=== PATIENT | female | born 1935 | race Caucasian/White ===

== ENCOUNTER 2017-09-24 09:06 | Outpatient (CLI) | payer MEDICARE, BC | END 2017-09-24 09:07 | disposition home or self-care (01) | LOC: BICMAMMO 09:06 | PROVIDERS: ATTEND Internal Medicine | DX: Z12.31 Encounter for screening mammogram for malignant neoplasm of breast (principal); Z80.3 Family history of malignant neoplasm of breast | CPT/HCPCS: 77063; 77067 ==

== ENCOUNTER 2017-10-02 10:14 | Emergency (ER) | payer MEDICARE, BC ==
[2017-10-02 10:39] LABS: #Eosinphils 0.1 thou/uL (0.0-0.7); #Monocytes 0.5 thou/uL (0.11-0.59); #Neutrophils 3.6 thou/uL (1.40-6.50); %Basophils 0.2 % (0.0-1.0); %Eosinophils 2.1 % (0.0-10.0); %Monocytes 10.1 % (0.0-10.0); %Neutrophils 68.7 % (42.0-75.0); Hemoglobin 12.9 g/dL (12.0-16.0); Mean Corpuscular HGB CONC 34.1 g/dL (32.0-36.0); Mean Corpuscular Hemoglobin 31.4 pg (27.0-31.0); Mean Platelet Volume 6.4 fL (7.4-10.4); Platelet Count 215 thou/uL (130-400); RBC Distribution Width 11.6 % (11.5-14.5); Red Blood Cell (RBC) Count 4.12 mill/uL (4.20-5.40); White Blood Cell (WBC) Count 5.2 thou/uL (4.8-10.8)
--- NOTE | 2017-10-02 10:53 | RAD ---
PORTABLE UPRIGHT FRONTAL CHEST RADIOGRAPH: DATE: 10/02/17. COMPARISON: 06/09/13. HISTORY: Cough for 6 days. FINDINGS: Heart and mediastinal contours are unremarkable. There is an old displaced mid shaft right clavicle fracture. 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 No pneumothorax or pleural fluid. No focal consolidation or alveolar edema. IMPRESSION: No acute findings - stable appearance of the chest. POS: [facility]
[2017-10-02 11:03] LABS: ALT (SGPT) 13 U/L (8-55); AST (SGOT) 20 U/L (5-34); Albumin 4.1 g/dL (3.4-4.8); Alkaline Phosphatase 98 U/L (40-150); Anion Gap 12 mmol/L (10-20); BUN (Urea Nitrogen) 17 mg/dL (9.8-20.1); Bilirubin, Total 0.4 mg/dL (0.2-1.2); Calc. Creatinine Clearance 0 mL/min (70-130); Calcium 9.3 mg/dL (7.8-10.44); Carbon Dioxide 26 mmol/L (23-31); Chloride 93 mmol/L (98-107); Estimated GFR-MDRD 60; Globulin 2.6 g/dL (2.4-3.5); Glucose 101 mg/dL (83-110); Potassium 3.9 mmol/L (3.5-5.1); Protein, Total 6.7 g/dL (6.0-8.3); Sodium 127 mmol/L (136-145)
[2017-10-02 14:21] LABS: Anion Gap 11 mmol/L (10-20); BUN (Urea Nitrogen) 16 mg/dL (9.8-20.1); Calc. Creatinine Clearance 0 mL/min (70-130); Calcium 8.9 mg/dL (7.8-10.44); Carbon Dioxide 28 mmol/L (23-31); Chloride 97 mmol/L (98-107); Estimated GFR-MDRD 69; Glucose 92 mg/dL (83-110); Potassium 3.9 mmol/L (3.5-5.1); Sodium 132 mmol/L (136-145)
== END 2017-10-02 14:52 | disposition home or self-care (01) ==
LOC: ERS 10:14
DX: E87.1 Hypo-osmolality and hyponatremia (principal); J06.9 Acute upper respiratory infection, unspecified; M19.90 Unspecified osteoarthritis, unspecified site; Z79.82 Long term (current) use of aspirin; Z79.899 Other long term (current) drug therapy
CPT/HCPCS: 36415; 71045; 80053; 85025; 96360

== ENCOUNTER 2017-10-22 14:30 | Outpatient (CLI) | payer MEDICARE, BC ==
--- NOTE | 2017-10-22 15:51 | RAD ---
LEFT KNEE FOUR VIEWS: History: Osteoarthritis. FINDINGS/IMPRESSION: There are post op changes of total knee replacement in good position and alignment. No fracture or di slocation or bony destruction is seen. No perihardware lucency is identified to suggest loosening. Th ere is fullness in the suprapatellar pouch, suspicious for joint effusion. POS: [facility]
--- NOTE | 2017-10-22 15:53 | RAD ---
TWO VIEWS LEFT TIBIA AND FIBULA: Date: 10-22-17 History: Osteoarthritis. Comparison: None available. FINDINGS: There is a left total knee prosthesis incompletely imaged on this exam. However, where imaged, no def inite hardware complication is appreciated. There is no fracture or dislocation involving the left ti morenita or fibula. Ankle mortise appears congruent. There are degenerative changes involving the hindfoot . There is a plantar calcaneal enthesophyte identified. IMPRESSION: 1. No acute osseous abnormality involving the left tibia or fibula. 2. Left total knee prosthesis. 3. Degenerative changes involving the midfoot as well as hindfoot. POS: [facility]
--- NOTE | 2017-10-22 15:55 | RAD ---
LEFT FEMUR TWO VIEWS: History: Osteoarthritis. Comparison: None. FINDINGS: Mild enthesopathic changes of the lesser and greater trochanters. There is normal appearance to the l eft hip joint. No fracture. No malalignment. Incomplete evaluation of left total knee arthroplasty. No perihardware fracture. IMPRESSION: Enthesopathic changes lesser and greater trochanters. No acute osseous abnormality. Minimal narrowing of the left hip joint. POS: [facility]
--- NOTE | 2017-10-22 19:15 | ULT ---
ULTRASOUND WITH DOPPLER DUPLEX VENOUS LOWER EXTREMITY LEFT: 10/22/17 HISTORY: 82-year-old female with left knee pain. TECHNIQUE: Color flow Doppler, spectral waveform analysis of pulsed Doppler, and parikh-scale imaging with jalen collette and augmentation, were used to evaluate the left common femoral, femoral, popliteal, posterior t ibial, and superficial femoral, veins; and the proximal portions of the profunda femoral and greater saphenous, veins. FINDINGS: There is normal compressibility, demonstration of blood flow by color Doppler and pulsed Doppler, and response to augmentation, in all interrogated veins. There is a cystic fluid collection in the popli teal fossa which was not measured by the senior test engineer. IMPRESSION: 1. No deep vein thrombosis in the left lower extremity. 2. Left Boo's cyst. latoya[] POS: [facility]
== END 2017-10-22 14:31 | disposition home or self-care (01) ==
LOC: ULT 14:30
PROVIDERS: ATTEND Internal Medicine
DX: M79.605 Pain in left leg (principal); M19.90 Unspecified osteoarthritis, unspecified site; M71.22 Synovial cyst of popliteal space [Baker], left knee; M19.072 Primary osteoarthritis, left ankle and foot; Z96.652 Presence of left artificial knee joint

== ENCOUNTER 2018-11-04 14:13 | Outpatient (CLI) | payer MEDICARE, BC ==
--- NOTE | 2018-11-05 11:13 | MMO ---
Bilateral MAMMO Bilat Screen [facility]. CLINICAL HISTORY: Patient is 83 years old and is seen for screening. The patient has the following family history of breast cancer: mother, at age 56. The patient has no personal history of cancer. VIEWS: The views performed were: bilateral craniocaudal with tomosynthesis and bilateral mediolateral oblique with tomosynthesis. FILMS COMPARED: The present examination has been compared to prior imaging studies performed at [facility] on 04/21/2001, 06/09/2002, 06/11/2003, 07/04/2004, 08/16/2005, 08/23/2006, 09/11/2007, 10/26/2008, 11/25/2009, 01/29/2011, 05/19/2012, 07/14/2013, 07/16/2014, 08/04/2015, 09/13/2016 and 09/24/2017. MAMMOGRAM FINDINGS: There are scattered fibroglandular densities. There are stable benign appearing calcifications seen in both breasts. There are also vascular calcifications. There are no suspicious masses, suspicious calcifications, or new areas of architectural distortion. IMPRESSION: THERE IS NO MAMMOGRAPHIC EVIDENCE OF MALIGNANCY. A ROUTINE FOLLOW-UP MAMMOGRAM IN 1 YEAR IS RECOMMENDED. THE RESULTS OF THIS EXAM WERE SENT TO THE PATIENT. ACR BI-RADS Category 2 - Benign finding MAMMOGRAPHY NOTE: 1. A negative mammogram report should not delay a biopsy if a dominant of clinically suspicious mass is present. 2. Approximately 10% to 15% of breast cancers are not detected by mammography. 3. Adenosis and dense breasts may obscure an underlying neoplasm.
== END 2018-11-04 14:14 | disposition home or self-care (01) ==
LOC: BICMAMMO 14:13
PROVIDERS: ATTEND Internal Medicine
DX: Z12.31 Encounter for screening mammogram for malignant neoplasm of breast (principal); Z80.3 Family history of malignant neoplasm of breast
CPT/HCPCS: 77063; 77067

== ENCOUNTER 2019-05-20 16:26 | Outpatient (CLI) | payer MEDICARE, BC ==
--- NOTE | 2019-05-20 16:45 | RAD ---
XR Shoulder Rt 3 View STANDARD HISTORY: Right shoulder pain FINDINGS: There is a old displaced fracture involving the shaft of the right clavicle, also seen on the chest r adiograph of 10/02/2017. No acute fracture or dislocation is identified. There are degenerative changes in the acromioclavicu lar joint.
== END 2019-05-20 16:27 | disposition home or self-care (01) ==
LOC: BICRAD 16:26
PROVIDERS: ATTEND Internal Medicine Rheumatology
DX: M25.511 Pain in right shoulder (principal)

== ENCOUNTER 2020-05-12 13:37 | Outpatient (CLI) | payer MEDICARE, BC ==
--- NOTE | 2020-05-12 14:51 | MMO ---
Bilateral MAMMO Bilat Screen [facility]. CLINICAL HISTORY: Patient is 84 years old and is seen for screening. The patient has the following family history of breast cancer: mother, at age 56. The patient has no personal history of cancer. VIEWS: The views performed were: bilateral craniocaudal with tomosynthesis and bilateral mediolateral oblique with tomosynthesis. FILMS COMPARED: The present examination has been compared to prior imaging studies performed at [facility] on 08/04/2015, 09/13/2016, 09/24/2017 and 11/04/2018. This study has been interpreted with the assistance of computer-aided detection. MAMMOGRAM FINDINGS: There are scattered fibroglandular densities. There are stable benign appearing calcifications seen in both breasts. There are no suspicious masses, suspicious calcifications, or new areas of architectural distortion. IMPRESSION: THERE IS NO MAMMOGRAPHIC EVIDENCE OF MALIGNANCY. A ROUTINE FOLLOW-UP MAMMOGRAM IN 1 YEAR IS RECOMMENDED. THE RESULTS OF THIS EXAM WERE SENT TO THE PATIENT. ACR BI-RADS Category 2 - Benign finding MAMMOGRAPHY NOTE: 1. A negative mammogram report should not delay a biopsy if a dominant of clinically suspicious mass is present. 2. Approximately 10% to 15% of breast cancers are not detected by mammography. 3. Adenosis and dense breasts may obscure an underlying neoplasm. Reported by: MILLY GONZALEZ MD Electonically Signed: [id number]
== END 2020-05-12 13:38 | disposition home or self-care (01) ==
LOC: BICMAMMO 13:37
PROVIDERS: ATTEND Internal Medicine
DX: Z12.31 Encounter for screening mammogram for malignant neoplasm of breast (principal); Z80.3 Family history of malignant neoplasm of breast
CPT/HCPCS: 77063; 77067

== ENCOUNTER 2020-05-23 13:49 | Emergency (ER) | payer MEDICARE, BC ==
--- NOTE | 2020-05-23 14:38 | RAD ---
EXAM: Single view of the chest HISTORY: Chest pain COMPARISON: 10/02/2017 FINDINGS: Single view of the chest shows a normal sized cardiomediastinal silhouette. There is no junior dence of consolidation, mass, or pleural effusion. There is absence of the distal aspect of the right clavicle. There appear to be a right healed rib fractures. Degenerative changes are seen in the spine and shoulders. IMPRESSION: No evidence of acute cardiopulmonary disease
[2020-05-23 15:28] LABS: #Eosinphils 0.1 thou/uL (0.0-0.7); #Monocytes 0.6 thou/uL (0.11-0.59); #Neutrophils 3.7 thou/uL (1.40-6.50); %Basophils 0.7 % (0.0-1.0); %Eosinophils 1.9 % (0.0-10.0); %Monocytes 8.9 % (0.0-10.0); %Neutrophils 57.6 % (42.0-75.0); Hemoglobin 13.2 g/dL (12.0-16.0); Mean Corpuscular HGB CONC 33.9 g/dL (32.0-36.0); Mean Corpuscular Hemoglobin 30.9 pg (27.0-31.0); Mean Corpuscular Volume 91.3 fL (78.0-98.0); Mean Platelet Volume 7.8 fL (7.4-10.4); Platelet Count 222 thou/uL (130-400); RBC Distribution Width 11.2 % (11.5-14.5); Red Blood Cell (RBC) Count 4.27 mill/uL (4.20-5.40); White Blood Cell (WBC) Count 6.4 thou/uL (4.8-10.8)
[2020-05-23 15:55] LABS: ALT (SGPT) 9 U/L (8-55); AST (SGOT) 20 U/L (5-34); Albumin 4.1 g/dL (3.4-4.8); Alkaline Phosphatase 113 U/L (40-110); Anion Gap 12 mmol/L (10-20); BUN (Urea Nitrogen) 20 mg/dL (9.8-20.1); Bilirubin, Total 0.5 mg/dL (0.2-1.2); Calc. Creatinine Clearance 0 mL/min (70-130); Calcium 9.3 mg/dL (7.8-10.44); Carbon Dioxide 28 mmol/L (23-31); Chloride 101 mmol/L (98-107); Estimated GFR-MDRD 55; Globulin 2.7 g/dL (2.4-3.5); Glucose 94 mg/dL (83-110); Potassium 4.4 mmol/L (3.5-5.1); Protein, Total 6.8 g/dL (6.0-8.3); Sodium 137 mmol/L (136-145)
== END 2020-05-23 19:10 | disposition home or self-care (01) ==
LOC: ERS 13:49
DX: R07.9 Chest pain, unspecified (principal); M19.90 Unspecified osteoarthritis, unspecified site; Z79.82 Long term (current) use of aspirin; Z79.899 Other long term (current) drug therapy
CPT/HCPCS: 36415; 36600; 71045; 80053; 84484; 85025; 93005

== ENCOUNTER 2021-06-01 10:12 | Outpatient (CLI) | payer MEDICARE, BC | END 2021-06-01 10:13 | disposition home or self-care (01) | LOC: BICMAMMO 10:12 | PROVIDERS: ATTEND Internal Medicine | DX: Z12.31 Encounter for screening mammogram for malignant neoplasm of breast (principal); Z13.820 Encounter for screening for osteoporosis; Z78.0 Asymptomatic menopausal state; Z98.890 Other specified postprocedural states; Z80.3 Family history of malignant neoplasm of breast | CPT/HCPCS: 77063; 77067; 77080 ==

== ENCOUNTER 2023-07-09 11:09 | Outpatient (CLI) | payer MEDICARE, BC | END 2023-07-09 11:10 | disposition home or self-care (01) | LOC: BICMAMMO 11:09 | PROVIDERS: ATTEND Internal Medicine | DX: Z12.31 Encounter for screening mammogram for malignant neoplasm of breast (principal); Z80.3 Family history of malignant neoplasm of breast | CPT/HCPCS: 77063; 77067 ==

== ENCOUNTER 2023-10-29 14:03 | Outpatient (CLI) | payer MEDICARE, BC | END 2023-10-29 14:04 | disposition home or self-care (01) | LOC: BICMAMMO 14:03 | PROVIDERS: ATTEND Obstetrics & Gynecology | DX: N63.10 Unspecified lump in the right breast, unspecified quadrant (principal); R92.1 Mammographic calcification found on diagnostic imaging of breast | CPT/HCPCS: 76642; 77065; G0279 ==

== ENCOUNTER 2024-05-26 16:03 | Inpatient (IN) | payer MEDICARE, BC ==
[2024-05-26 16:46] LABS: #Basophils 0.03 10x3/uL (0.0-0.2); #Eosinophils Less than 0.03 10x3/uL (0.0-0.7); %Basophils 0.4 % (0.0-1.0); %Eosinophils 0.3 % (0.0-10.0); %Lymphocytes 36.2 % (21.0-51.0); %Monocytes 9.8 % (0.0-10.0); %Neutrophils 53.2 % (42.0-75.0); Mean Corpuscular HGB CONC 34.3 g/dL (32.0-36.0); Mean Corpuscular Hemoglobin 30.5 pg (27.0-31.0); Mean Corpuscular Volume 89.1 fL (78.0-98.0); Mean Platelet Volume 11.3 fL (7.4-10.4); Platelet Count 185 10x3/uL (130-400); RBC Distribution Width 12.8 % (11.5-14.5); Red Blood Cell (RBC) Count 3.93 mill/uL (4.20-5.40)
[2024-05-26 17:05] LABS: INR-International Normal Ratio 1.1; Prothrombin Time 14.7 sec (12.0-14.7)
[2024-05-26 17:09] LABS: Troponin I 0.204 ng/mL (< 0.028)
[2024-05-26 17:12] LABS: ALT (SGPT) 25 U/L (8-55); AST (SGOT) 36 U/L (5-34); Albumin 3.8 g/dL (3.4-4.8); Alkaline Phosphatase 117 U/L (40-110); Anion Gap 16 mmol/L (10-20); BUN (Urea Nitrogen) 19 mg/dL (9.8-20.1); Bilirubin, Total 0.7 mg/dL (0.2-1.2); Calc. Creatinine Clearance 0 mL/min (70-130); Calcium 9.3 mg/dL (7.8-10.44); Carbon Dioxide 23 mmol/L (23-31); Chloride 103 mmol/L (98-107); Estimated GFR 39; Globulin 2.8 g/dL (2.4-3.5); Glucose 97 mg/dL (83-110); Potassium 4.2 mmol/L (3.5-5.1); Protein, Total 6.6 g/dL (5.8-8.1); Sodium 138 mmol/L (136-145)
[2024-05-26] MEDS ORDERED: dilTIAZem 25 MG/5 ML VIAL ONE ×2 (17:52→19:28)
[2024-05-26 17:53] LABS: Bacteria/HPF None Seen HPF (None Seen); Bilirubin Negative (Negative); Blood, Urine Negative (Negative); CAUTI Indications for Culture Dysuria,urgency,freq; Clarity Clear (Clear); Glucose, Urine (Dipstick) Normal (Negative); Ketone, Urine Negative (Negative); Leukocyte 500 Leu/uL (Negative); Nitrite Negative (Negative); Protein, Urine (Dipstick) 20 mg/dL (Neg-Trace); RBC/HPF 0-3 HPF (0-3); Specific Gravity, Urine 1.013 (1.002-1.036); Squamous Epithelial 0-3 HPF (0-3); Urobilinogen Normal mg/dL (Less than 2); WBC/HPF Greater than 50 HPF (0-3); pH, Urine 5.5 (5.0-9.0)
[2024-05-26 17:57] LABS: Urine Culture Reflex Yes Yes
[2024-05-26] MEDS ORDERED: Enoxaparin 60 MG (0.6 mL) SYRINGE ONE (18:08)
[2024-05-26] MEDS ORDERED: cefTRIAXone (ROCEPHIN) 1 GM VIAL ONE (19:28)
[2024-05-26] MEDS ORDERED: Diltiazem HCl/D5W 125 ML ONE (19:28)
[2024-05-26] MEDS ORDERED: Acetaminophen 650 MG Suppository PR PRN (20:45)
[2024-05-26] MEDS ORDERED: traMADol HCl 50 MG TAB PO PRN ×2 (20:45)
[2024-05-26] MEDS ORDERED: dilTIAZem 125 MG in Sodium Chloride 0.9% 100 ML IVPB SCH (20:45)
[2024-05-26] MEDS ORDERED: Ondansetron ODT 4 MG TAB PO PRN (20:45)
[2024-05-26] MEDS ORDERED: Ondansetron PF 4 MG/2 ML Vial IVP PRN (20:45)
[2024-05-26] MEDS ORDERED: Diltiazem HCl/D5W 125 MG in Premix 1 BAG IVPB SCH (21:00)
[2024-05-26 21:37] LABS: Troponin I 0.126 ng/mL (< 0.028)
[2024-05-26 21:53] LABS: Magnesium 2.2 mg/dL (1.6-2.6); Phosphorus 3.7 mg/dL (2.3-4.7)
[2024-05-26 22:50] VITALS: BMI 32.4
[2024-05-26 22:58] LABS: Troponin I 0.564 ng/mL (< 0.028)
[2024-05-27] MEDS: Amiodarone 150 MG, Admixture Fee 1 EACH in Dextrose 5% in Water 100 ML IVPB SCH (01:15)
[2024-05-27] MEDS ORDERED: Amiodarone 450 MG in Dextrose 5% in Water 250 ML IVPB SCH (01:30)
[2024-05-27] MEDS: Enoxaparin 30 MG (0.3 mL) SYRINGE SC SCH (05:30)
[2024-05-27 06:01] LABS: #Basophils 0.03 10x3/uL (0.0-0.2); %Basophils 0.5 % (0.0-1.0); %Eosinophils 0.6 % (0.0-10.0); %Lymphocytes 32.8 % (21.0-51.0); %Monocytes 9.6 % (0.0-10.0); %Neutrophils 56.3 % (42.0-75.0); Hematocrit 33.9 % (36.0-47.0); Hemoglobin 11.1 g/dL (12.0-16.0); Mean Corpuscular HGB CONC 32.7 g/dL (32.0-36.0); Mean Corpuscular Hemoglobin 29.7 pg (27.0-31.0); Mean Corpuscular Volume 90.6 fL (78.0-98.0); Mean Platelet Volume 11.1 fL (7.4-10.4); Platelet Count 172 10x3/uL (130-400); RBC Distribution Width 12.8 % (11.5-14.5); Red Blood Cell (RBC) Count 3.74 mill/uL (4.20-5.40)
[2024-05-27] MEDS: Acetaminophen 325 MG TAB PO PRN (06:14)
[2024-05-27 06:21] LABS: Hemoglobin A1c 4.9 % (4.0-6.0)
[2024-05-27 06:37] LABS: Anion Gap 12 mmol/L (10-20); BUN (Urea Nitrogen) 16 mg/dL (9.8-20.1); Calc. Creatinine Clearance 58 mL/min (70-130); Calcium 8.7 mg/dL (7.8-10.44); Carbon Dioxide 23 mmol/L (23-31); Chloride 105 mmol/L (98-107); Estimated GFR 63; Glucose 84 mg/dL (83-110); Magnesium 2.1 mg/dL (1.6-2.6); Phosphorus 3.8 mg/dL (2.3-4.7); Potassium 3.4 mmol/L (3.5-5.1); Sodium 137 mmol/L (136-145)
[2024-05-27] MEDS ORDERED: Enoxaparin 80 MG (0.8 mL) SYRINGE SC SCH (09:00)
[2024-05-27] MEDS: FLU (Fluad Triv) TS24-25 (65UP)/MF59C/PF 45 MCG/0.5 ML Syringe IM ONE (09:00)
[2024-05-27] MEDS: Amiodarone 200 MG TAB PO SCH (10:00)
[2024-05-27] MEDS: Furosemide 20 MG (2 mL) VIAL SLOW IVP SCH (10:01)
[2024-05-27] MEDS: Potassium Chloride 20 MEQ TAB PO SCH (10:01)
[2024-05-27] MEDS: Spironolactone 25 MG TAB PO SCH (10:01)
[2024-05-27] MEDS: Apixaban 5 MG TAB PO SCH (10:01)
[2024-05-27] MEDS: Magnesium 2 GM/50 ML(in water) 2 GM in Premix 1 BAG IVPB SCH (10:02)
[2024-05-27] MEDS: Gabapentin 300 MG CAP PO SCH (20:09)
[2024-05-27] MEDS: cefTRIAXone\\ROCEPHIN 1 GM in Sodium Chloride 0.9% 100 ML IVPB SCH (20:11)
[2024-05-28 05:18] LABS: Troponin I 0.077 ng/mL (< 0.028)
[2024-05-28 05:21] LABS: Chloride 107 mmol/L (98-107); Sodium 135 mmol/L (136-145)
[2024-05-28 05:22] LABS: Calcium 8.3 mg/dL (7.8-10.44); Glucose 86 mg/dL (83-110)
[2024-05-28 05:24] LABS: Anion Gap 16 mmol/L (10-20); Carbon Dioxide 16 mmol/L (23-31)
[2024-05-28 05:26] LABS: BUN (Urea Nitrogen) 13 mg/dL (9.8-20.1); Calc. Creatinine Clearance 60 mL/min (70-130); Estimated GFR 65
[2024-05-28] MEDS: Potassium Chloride 20 MEQ TAB PO SCH (09:00)
[2024-05-28] MEDS: Amiodarone 200 MG TAB PO SCH (09:00)
[2024-05-28] MEDS: Furosemide 20 MG (2 mL) VIAL SLOW IVP SCH (09:00)
[2024-05-28] MEDS: Magnesium 2 GM/50 ML(in water) 2 GM in Premix 1 BAG IVPB SCH (09:00)
[2024-05-28] MEDS: Gabapentin 300 MG CAP PO SCH (09:04)
[2024-05-28] MEDS: Spironolactone 25 MG TAB PO SCH (09:05)
[2024-05-29 06:54] LABS: Anion Gap 11 mmol/L (10-20); BUN (Urea Nitrogen) 9 mg/dL (9.8-20.1); Calc. Creatinine Clearance 64 mL/min (70-130); Calcium 8.7 mg/dL (7.8-10.44); Carbon Dioxide 28 mmol/L (23-31); Chloride 103 mmol/L (98-107); Estimated GFR 70; Glucose 91 mg/dL (83-110); Magnesium 2.6 mg/dL (1.6-2.6); Potassium 3.9 mmol/L (3.5-5.1); Sodium 138 mmol/L (136-145)
[2024-05-29 08:17] VITALS: TEMP 97.8
[2024-05-29 15:54] VITALS: BP 139/77
== END 2024-05-29 16:48 | disposition home or self-care (01) | DRG 309 ==
LOC: ERS 16:03 → SUATTDRO 16:03 → IMCU/EMU 20:23
PROVIDERS: ADMIT Family Medicine; ATTEND Internal Medicine
DX: I48.0 Paroxysmal atrial fibrillation (principal); I50.30 Unspecified diastolic (congestive) heart failure; N39.0 Urinary tract infection, site not specified; R79.89 Other specified abnormal findings of blood chemistry; Z88.7 Allergy status to serum and vaccine; Z96.641 Presence of right artificial hip joint; Z96.653 Presence of artificial knee joint, bilateral; Z98.42 Cataract extraction status, left eye; Z98.41 Cataract extraction status, right eye; M47.812 Spondylosis without myelopathy or radiculopathy, cervical region; I35.0 Nonrheumatic aortic (valve) stenosis; I34.0 Nonrheumatic mitral (valve) insufficiency; E87.6 Hypokalemia; R09.02 Hypoxemia; Z79.899 Other long term (current) drug therapy; I11.0 Hypertensive heart disease with heart failure; Z23 Encounter for immunization
CPT/HCPCS: 36415; 71045; 80048; 80053; 81001; 83036; 83605; 83735; 83880; 84100; 84443; 84484; 85025; 85379; 85610; 85730; 87040; 87086; 93005; 93306; 93970; 96372; 96374; 96375; 96376; J0696; J1650; J1940; J3475

== ENCOUNTER 2024-07-15 13:51 | Outpatient (CLI) | payer MEDICARE, BC | END 2024-07-15 13:52 | disposition home or self-care (01) | LOC: BICULT 13:51 | PROVIDERS: ATTEND Internal Medicine | DX: E04.1 Nontoxic single thyroid nodule (principal) | CPT/HCPCS: 76536 ==

== ENCOUNTER 2024-08-13 10:30 | Outpatient (CLI) | payer MEDICARE, BC | END 2024-08-13 10:31 | disposition home or self-care (01) | LOC: BICMAMMO 10:30 | PROVIDERS: ATTEND Internal Medicine | DX: Z12.31 Encounter for screening mammogram for malignant neoplasm of breast (principal); Z80.3 Family history of malignant neoplasm of breast; N64.89 Other specified disorders of breast | CPT/HCPCS: 77063; 77067 ==

== ENCOUNTER 2024-08-24 14:30 | Outpatient (CLI) | payer MEDICARE, BC | END 2024-08-24 14:31 | disposition home or self-care (01) | LOC: BICMAMMO 14:30 | PROVIDERS: ATTEND Internal Medicine | DX: N64.89 Other specified disorders of breast (principal) | CPT/HCPCS: 77065; G0279 ==